=== PATIENT | female | born 1955 | race Caucasian/White ===

== ENCOUNTER 2021-12-17 12:49 | Emergency (ER) | payer OTHER, MEDICARE ==
[2021-12-17 13:33] VITALS: BP 116/74; PULSE 53; RESP 18; TEMP 97.3; BMI 26.9
[2021-12-17] MEDS ORDERED: IBUPROFEN 600 MG TABLET (FP) PO ONE (14:23)
== END 2021-12-17 15:59 | disposition home or self-care (01) ==
LOC: JER 12:49 → JERFT 12:49
DX: R07.82 Intercostal pain (principal); M25.511 Pain in right shoulder; V87.7XXA Person injured in collision between other specified motor vehicles (traffic), initial encounter; Y92.9 Unspecified place or not applicable
CPT/HCPCS: 71101-TC-RT-FY; 73030-TC-RT-FY; 73060-TC-RT-FY; 99284-25

== ENCOUNTER → 2023-11-26 | Day surgery (SDC) | payer OTHER | END | disposition home or self-care (01) | LOC: JRADIR 09:19 | PROVIDERS: ATTEND Nurse Practitioner Family | PROC: 0G9G3ZX Drainage of Left Thyroid Gland Lobe, Percutaneous Approach, Diagnostic (ICD-10-PCS; principal; 2023-11-26) | DX: E04.1 Nontoxic single thyroid nodule (principal) | CPT/HCPCS: 10005; 76942; 88173; 88305-TC ==